=== PATIENT | female | born 1985 | race Caucasian/White ===

== ENCOUNTER → 2017-06-26 | Day surgery (SDC) | payer OTHER ==
[2017-06-26 12:03] VITALS: BP 121/76; PULSE 79; RESP 16; TEMP 98.4; BMI 35.5
--- NOTE | 2017-06-26 12:28 | USB ---
Discontinued breast biopsy HISTORY: Breast mass Ultrasound performed at the site of patient's previous abnormality shows decrease in size of the cyst ic focus compatible with involuting breast cyst. IMPRESSION: Discontinued aspiration, follow-up breast ultrasound could be performed in 3-6 months to assess for stability.
== END ==
LOC: RADUSWWP 11:25
PROVIDERS: ATTEND Surgery
DX: R92.8 Other abnormal and inconclusive findings on diagnostic imaging of breast (principal); Z53.8 Procedure and treatment not carried out for other reasons

== ENCOUNTER 2018-10-29 06:07 | Emergency (ER) | payer OTHER ==
[2018-10-29 07:14] LABS: Basophils % (A) 0 %; Eosinophils # (A) 0.2 k/uL (0-0.7); Eosinophils % (A) 3 %; HCT 41.9 % (34.0-46.0); HGB 13.7 gm/dL (11.4-16.0); Lymphocytes # (A) 3.8 k/uL (1.0-4.8); Lymphocytes % (A) 42 %; MCH 27.2 pg (25.0-35.0); MCHC 32.7 g/dL (31.0-37.0); MCV 83.1 fL (80.0-100.0); Mean Platelet Volume 6.7; Monocytes # (A) 0.4 k/uL (0-1.0); Monocytes % (A) 4 %; Neutrophils # (A) 4.4 k/uL (1.3-7.7); Neutrophils % (A) 49 %; Platelet Count 412 k/uL (150-450); RBC 5.03 m/uL (3.80-5.40); RDW 14.7 % (11.5-15.5); WBC 8.9 k/uL (3.8-10.6)
[2018-10-29 07:24] LABS: ALT 50 U/L (9-52); AST 68 U/L (14-36); African American GFR (CKD) >90 (>60 ml/min/1.73 sqM); Albumin 4.1 g/dL (3.5-5.0); Alkaline Phosphatase 85 U/L (38-126); Amylase 67 U/L (30-110); Anion Gap 10 mmol/L; Blood Urea Nitrogen 11 mg/dL (7-17); Calcium 9.1 mg/dL (8.4-10.2); Carbon Dioxide 22 mmol/L (22-30); Chloride 109 mmol/L (98-107); Glucose 118 mg/dL (74-99); Lipase 164 U/L (23-300); Magnesium 1.9 mg/dL (1.6-2.3); Sodium 141 mmol/L (137-145); Total Bilirubin 0.3 mg/dL (0.2-1.3); Total Protein 7.5 g/dL (6.3-8.2)
[2018-10-29 07:29] LABS: INR 0.9 (<1.2)
[2018-10-29 07:36] LABS: Partial Thromboplastin Time 21.3 sec (22.0-30.0)
[2018-10-29 08:14] VITALS: RESP 18
--- NOTE | 2018-10-29 08:14 | ED ---
Chest Pain HPI - General Chief Complaint: Chest Pain Stated Complaint: Chest Pain, Vomiting Time Seen by Provider: 10/29/18 06:59 Source: patient, RN notes reviewed Mode of arrival: ambulatory Limitations: no limitations - History of Present Illness Initial Comments: This 33-year-old female with a remote history of smoking and drinking alcohol years ago who states she woke up this morning was some midsternal chest pain sharp and crampy in nature associated nausea and vomiting. She has some sweats. She states she started her menstrual period today and thought was related to that. She had multiple episodes of vomiting she states after she did vomit however the pain went away. She currently is pain-free. No other history she has is that of being evaluated for elevated white blood cell count. There is a family history of heart disease and CVA in the past. Currently no other modifying factors MD Complaint: chest pain - Related Data Home Medications Medication Instructions Recorded Confirmed FLUoxetine HCL [PROzac] 80 mg PO DAILY 06/13/17 10/29/18 Cholecalciferol (Vitamin D3) 2,000 unit PO DAILY 10/29/18 10/29/18 [Vitamin D3] Etonogestrel/Ethinyl Estradiol 1 ring VG Q28D 10/29/18 10/29/18 [Nuvaring Vaginal Ring] Levothyroxine Sodium [Synthroid] 137 mcg PO DAILY 10/29/18 10/29/18 hydrOXYzine PAMOATE 25 mg PO DAILY PRN 10/29/18 10/29/18 prednisoLONE ACETATE 1% OPHTH 1 drops BOTH EYES BID PRN 10/29/18 10/29/18 [Pred Forte 1%] Allergies Allergy/AdvReac Type Severity Reaction Status Date / Time No Known Allergies Allergy Verified 10/29/18 08:39 Review of Systems ROS Statement: Those systems with pertinent positive or pertinent negative responses have been documented in the HPI. ROS Other: All systems not noted in ROS Statement are negative. EKG Findings - EKG Results: EKG: interpreted by MANOLO GIPSON, sinus rhythm, normal axis, normal QRS, normal ST/T Past Medical History Past Medical History: Thyroid Disorder History of Any Multi-Drug Resistant Organisms: None Reported Past Surgical History: No Surgical Hx Reported Past Anesthesia/Blood Transfusion Reactions: No Reported Reaction Past Psychological History: Anxiety, Depression Smoking Status: Current every day smoker Past Alcohol Use History: Rare Past Drug Use History: None Reported General Exam - General Exam Comments Initial Comments: This is a well-developed well-nourished awake alert oriented 3 female Limitations: no limitations General appearance: alert, in no apparent distress Head exam: Present: atraumatic, normocephalic, normal inspection Eye exam: Present: normal appearance, PERRL, EOMI. Absent: scleral icterus, conjunctival injection, periorbital swelling ENT exam: Present: normal exam, mucous membranes moist Neck exam: Present: normal inspection, full ROM, other (No stridor JVD or bruits). Absent: tenderness, meningismus, lymphadenopathy Respiratory exam: Present: normal lung sounds bilaterally. Absent: respiratory distress, wheezes, rales, rhonchi, stridor Cardiovascular Exam: Present: regular rate, normal rhythm, normal heart sounds. Absent: systolic murmur, diastolic murmur, rubs, gallop, clicks GI/Abdominal exam: Present: soft, normal bowel sounds. Absent: distended, t enderness, guarding, rebound, rigid Extremities exam: Present: normal inspection, full ROM, normal capillary refill. Absent: tenderness, pedal edema, joint swelling, calf tenderness Back exam: Present: normal inspection Neurological exam: Present: alert, oriented X3, CN II-XII intact Psychiatric exam: Present: normal affect, normal mood Skin exam: Present: warm, dry, intact, normal color. Absent: rash Course Vital Signs 10/29/18 10/29/18 06:23 08:13 Temperature 98.1 F Pulse Rate 80 90 Respiratory 22 18 Rate Blood Pressure 125/82 118/65 O2 Sat by Pulse 98 97 Oximetry Chest Pain MDM - MDM I did review the imaging and report no acute findings. Patient is symptom free at this time the presentation is consistent with atypical chest pain likely on the basis of esophageal spasm she'll be discharged with follow-up with her doctor. Disposition Clinical Impression: Atypical chest pain, Esophageal spasm Disposition: HOME SELF-CARE Instructions (If sedation given, give patient instructions): Chest Pain (ED), Esophageal Spasm (ED) Is patient prescribed a controlled substance at d/c from ED?: No Referrals: Edward Jones DO [Primary Care Provider] - 1-2 days
--- NOTE | 2018-10-29 08:31 | XR ---
EXAMINATION TYPE: XR chest 2V DATE OF EXAM: 10/29/2018 COMPARISON: NONE HISTORY: Chest pain and vomiting TECHNIQUE: Frontal and lateral views of the chest are obtained. FINDINGS: There is no focal air space opacity, pleural effusion, or pneumothorax seen. Very mild ri ght hemidiaphragm elevation is seen. The cardiac silhouette size is within normal limits. The osseo us structures are intact. Minimal multilevel degenerative changes of the spine. IMPRESSION: No acute cardiopulmonary process.
[2018-10-29 09:14] VITALS: BP 113/67; PULSE 70; TEMP 98.3
== END 2018-10-29 09:13 | disposition home or self-care (01) ==
LOC: EC 06:07
DX: K22.4 Dyskinesia of esophagus (principal); E07.9 Disorder of thyroid, unspecified; F32.9 Major depressive disorder, single episode, unspecified; F41.9 Anxiety disorder, unspecified; F17.200 Nicotine dependence, unspecified, uncomplicated; Z79.890 Hormone replacement therapy; Z79.899 Other long term (current) drug therapy; Z97.5 Presence of (intrauterine) contraceptive device; Z82.49 Family history of ischemic heart disease and other diseases of the circulatory system
CPT/HCPCS: 36415; 71046; 80053; 82150; 83605; 83690; 83735; 84484; 85025; 85610; 85730; 93005; 99285

== ENCOUNTER 2019-05-27 08:36 | Emergency (ER) | payer OTHER ==
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
[2019-05-27 09:01] VITALS: BP 130/95; PULSE 89; RESP 18; TEMP 98.1
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
== END 2019-05-27 10:18 | disposition home or self-care (01) ==
LOC: EC 08:36
DX: S09.90XA Unspecified injury of head, initial encounter (principal); V48.5XXA Car driver injured in noncollision transport accident in traffic accident, initial encounter; Y92.410 Unspecified street and highway as the place of occurrence of the external cause
CPT/HCPCS: 70450; 72125; 99284

== ENCOUNTER → 2019-10-12 | Outpatient (CLI) | payer OTHER ==
--- NOTE | 2019-10-15 02:31 | ENG ---
ELECTRONYSTAGMOGRAM REPORT VNG REPORT: VNG INDICATIONS: A 34-year-old female with dizziness and lightheadedness began in 2013. Overall, improving. Comes in spells 2 to 3 times a month, lasting 10 to 20 seconds at a time. Dizziness can be precipitated by rolling over either right or left, going from a lying to a seated position, bending over or head down position; also by moving the head, when in the car or driving or in large crowds or busy . She has not had any falls, but does have some imbalance associated with symptoms. She has pressure in both ears. Denies any difficulties with hearing. VNG FINDINGS: Saccades shows intact peak velocities, accuracies and latencies. Gaze with fixation shows no nystagmus in any of the directions of gaze including centrally with vision denied. Tracking shows no break-ups. Optokinetic nystagmus shows no significant asymmetries. Static position testing in 6 different positions, eyes open and then vision denied shows no nystagmus. Connie-Hallpike maneuvers do elicit mild nystagmus but without dizziness per patient either side. Caloric testing shows 12% unilateral caloric weakness in the left ear, which is within normal limits. IMPRESSION: Unremarkable VNG study. There was mild nystagmus noted on [place]-Hallpike maneuvers on either side, but no dizziness reported. Consideration for possible benign positional vertigo, nonclassic. MMODL / IJN: [id number] /
== END | disposition home or self-care (01) ==
LOC: NEUROMAIN 09-24 07:49
PROVIDERS: ATTEND Otolaryngology
DX: R42 Dizziness and giddiness (principal)
CPT/HCPCS: 92537; 92540